=== PATIENT | female | born 1955 | race Caucasian/White ===

== ENCOUNTER 2019-02-01 02:02 | Outpatient (CLI) | payer OTHER, SELFPAY ==
[2019-02-01 08:48] LABS: Calculated LDL 138; Cholesterol 223 mg/dL (50-200); HDL Cholesterol 78 mg/dL (40-60); TSH 1.36 uIU/mL (0.358-3.74); Triglyceride 39 mg/dL (30-150)
== END 2019-02-01 02:22 ==
PROVIDERS: PCP Family Medicine; Visit Provider Family Medicine
DX: Z13.220 Encounter for screening for lipoid disorders (principal); Z13.29 Encounter for screening for other suspected endocrine disorder
CPT/HCPCS: 36415; 80061; 83721; 84443

== ENCOUNTER 2019-03-02 11:41 | Outpatient (CLI) | payer OTHER, SELFPAY ==
--- NOTE | 2019-03-02 12:30 | MERGE_ITS ---
*[facility]* *[facility]* [address] [place] [address] Date of study: 03/02/2019 Transthoracic Echocardiography M-mode, complete 2D, complete spectral Doppler, and color Doppler *STUDY CONCLUSIONS* Impressions: No significant valvular abnormality. Summary: 1. Left ventricle: The cavity size was normal. Wall thickness was normal. Systolic function was normal. The estimated ejection fraction was 55-60%. Wall motion was normal; there were no regional wall motion abnormalities. 2. Right ventricle: The cavity size was normal. Wall thickness was normal. Systolic function was normal. 3. Pulmonary arteries: Pulmonary systolic pressure was within the normal range. *PATIENT PRESENTATION* Height: 154.9cm (61in ) S/D Pressure: 97 / 46 Weight: 48.1kg (105.8lb ) BSA: 1.44m^2 Test start time: 12:40 PM. Test stop time: 01:30 PM. PERFORMING Unknown ORDERING Gilda Villagomez REFERRING Gilda Villagomez PERFORMING [facility] SURGICAL ONCOLOGIST RT Sangeetha Servin)(SUMIT)JUAN *PROCEDURE DATA* Procedure information: This study was interpreted by [facility]. Pertinent images and digital data are archived for permanent storage and are available for subsequent review. No prior study was available for comparison. Study status: Routine. Transthoracic echocardiography. M-mode, complete 2D, complete spectral Doppler, and color Doppler. A Transthoracic Echocardiogram was performed. Scanning was performed from the parasternal, apical, subcostal, and suprasternal notch acoustic windows. Images were obtained using an [id number] cardiac ultrasound machine. Image quality was adequate. Study completion: The patient tolerated the procedure well. History: PMH: Heart murmur r r01.1. *CARDIAC ANATOMY* Left ventricle: The cavity size was normal. Wall thickness was normal. Systolic function was normal. The estimated ejection fraction was 55-60%. Wall motion was normal; there were no regional wall motion abnormalities. Aortic valve: Trileaflet; mildly thickened leaflets. Mobility was not restricted. Doppler: Transvalvular velocity was within the normal range. There was no stenosis. There was no significant regurgitation. VTI ratio of LVOT to aortic valve: 0.85. Valve area (VTI): 2.5cm^2. Indexed valve area (VTI): 1.7cm^2/m^2. Peak velocity ratio of LVOT to aortic valve: 0.81. Valve area (Vmax): 2.4cm^2. Indexed valve area (Vmax): 1.7cm^2/m^2. Mean velocity ratio of LVOT to aortic valve: 0.85. Valve area (Vmean): 2.5cm^2. Indexed valve area (Vmean): 1.8cm^2/m^2. Mean gradient (S): 5mm Hg. Peak gradient (S): 9.4mm Hg. Aorta: Aortic root: The aortic root was normal in size. Ascending aorta: The ascending aorta was normal in size. Aortic arch: The aortic arch was normal in size. Mitral valve: Mildly thickened leaflets. Mobility was not restricted. Doppler: Transvalvular velocity was within the normal range. There was no evidence for stenosis. There was trivial regurgitation. Valve area by pressure half-time: 4.2cm^2. Indexed valve area by pressure half-time: 2.9cm^2/m^2. Peak gradient (D): 2.6mm Hg. Left atrium: The atrium was normal in size. Right ventricle: The cavity size was normal. Wall thickness was normal. Systolic function was normal. Pulmonic valve: Poorly visualized. Doppler: Transvalvular velocity was within the normal range. There was no evidence for stenosis. There was trivial regurgitation. Peak gradient (S): 4.5mm Hg. Tricuspid valve: Structurally normal valve. Doppler: Transvalvular velocity was within the normal range. There was no evidence for stenosis. There was trivial regurgitation. Pulmonary artery: Poorly visualized. Pulmonary systolic pressure was within the normal range. Right atrium: The atrium was normal in size. Pericardium: There was no pericardial effusion. Systemic veins: Inferior vena cava: Well visualized. The vessel was patent and normal in size. The respirophasic diameter changes were in the normal range (greater than or equal to 50%), consistent with normal central venous pressure. Baseline ECG: Bradycardia. Measurements Left ventricle Value Reference LV ID, ED, PLAX 4.1 cm 3.5 - 6.0 LV ID, ES, PLAX 3.2 cm 2.1 - 4.0 LV PW thickness, ED, PLAX 0.8 cm LV end-diastolic volume, 1-p A2C 89 ml LV ejection fraction, 1-p A2C 63 % LV end-diastolic volume, 1-p A4C 79 ml LV ejection fraction, 1-p A4C 63 % LV e', lateral 0.147 m/sec LV E/e', lateral 6 LV e', medial 0.135 m/sec LV E/e', medial 6 LV e', average 0.141 m/sec LV E/e', average 6 Ventricular septum Value Reference IVS thickness, ED, PLAX 0.9 cm LVOT Value Reference LVOT ID, A-P 1.9 cm LVOT area 3 cm^2 LVOT peak velocity, S 1.24 m/sec LVOT mean velocity, S 0.91 m/sec LVOT VTI, S 27.1 cm LVOT peak gradient, S 6.2 mm Hg LVOT mean gradient, S 3.6 mm Hg Stroke volume (SV), LVOT DP 81 ml Stroke index (SV/bsa), LVOT DP 56 ml/m^2 Aortic valve Value Reference Aortic valve peak velocity, S 1.5 m/sec Aortic valve mean velocity, S 1.1 m/sec Aortic valve VTI, S 32.0 cm Aortic mean gradient, S 5 mm Hg Aortic peak gradient, S 9.4 mm Hg VTI ratio, LVOT/AV 0.85 Aortic valve area, VTI 2.5 cm^2 Velocity ratio, peak, LVOT/AV 0.81 Aortic valve area, peak velocity 2.4 cm^2 Velocity ratio, mean, LVOT/AV 0.85 Aortic valve area, mean velocity 2.5 cm^2 Aortic valve area/bsa, mean velocity 1.8 cm^2/m^2 Aorta Value Reference Aortic root ID, ED 2.4 cm Ascending aorta ID, A-P, S 2.7 cm RVOT Value Reference RVOT VTI, S 18.6 cm Left atrium Value Reference LA ID, A-P, ES 2.0 cm LA ID/bsa, A-P 1.4 cm/m^2 <=2.2 LA volume/bsa, ES, 1-p A4C 31 ml/m^2 LA volume, ES, 2-p 32 ml LA volume/bsa, ES, 2-p 22 ml/m^2 LA/aortic root ratio 0.83 Mitral valve Value Reference Mitral E-wave peak velocity 0.81 m/sec Mitral A-wave peak velocity 0.58 m/sec Mitral deceleration time 180 ms 150 - 230 Mitral pressure half-time 52 ms Mitral peak gradient, D 2.6 mm Hg Mitral E/A ratio, peak 1.41 Mitral valve area, PHT, DP 4.2 cm^2 Pulmonary veins Value Reference Pulmonary vein peak velocity, S 0.38 m/sec Pulmonary vein peak velocity, D 0.72 m/sec Pulmonary vein velocity ratio, peak, 0.52 S/D Pulmonary vein A-wave reversal peak 0.27 m/sec velocity Pulmonary arteries Value Reference PA pressure, S, DP 21 mm Hg <=30 Tricuspid valve Value Reference Tricuspid regurg peak velocity 2 m/sec Tricuspid peak RV-RA gradient 15.7 mm Hg Right atrium Value Reference RA area, ES, A4C (L) 8.2 cm^2 8.3 - 19.5 Systemic veins Value Reference Estimated CVP 10 mm Hg Right ventricle Value Reference RV pressure, S, DP 26 mm Hg <=30 Pulmonic valve Value Reference Pulmonic peak gradient, S 4.5 mm Hg Legend: (L) and (H) luz values outside specified reference range. I have personally reviewed the images and have reviewed and edited the reported findings. Electronically signed by Vinny Soliman 03/02/2019 17:05
== END 2019-03-02 12:01 ==
PROVIDERS: PCP Family Medicine; Visit Provider Family Medicine
DX: R01.1 Cardiac murmur, unspecified (principal)
CPT/HCPCS: 93306

== ENCOUNTER 2020-02-12 00:20 | Outpatient (CLI) | payer OTHER, SELFPAY ==
--- NOTE | 2020-02-12 12:40 | DI.DEXA_ITS ---
EXAM: XR DEXA BONE DENSITY W/WO CELIA TECHNIQUE: Infinity Box C densitometer. COMPARISON: No exams were available for comparison FINDINGS: Lateral Spine Image: Unremarkable. No compression deformities identified. Left Hip: Total T-Score:-2.1. Femoral neck T-score -3.0. Total Z-Score: -1.0 T- and Z-scores: Consistent with osteoporosis. Lumbar Spine: Total T-Score: -1.6 Total Z-Score: 0.0 T- and Z-scores: Consistent with osteopenia.. Left forearm: T-score of the distal 3rd: -1.7. Total T-score -1.9. Total T-score -0.5. IMPRESSION: Osteoporosis of the left hip. Osteopenia of the lumbar spine and left forearm..
== END 2020-02-12 00:40 ==
PROVIDERS: PCP Family Medicine; Visit Provider Family Medicine
DX: M81.0 Age-related osteoporosis without current pathological fracture (principal); M85.88 Other specified disorders of bone density and structure, other site
CPT/HCPCS: 77080

== ENCOUNTER 2022-01-15 06:06 | Day surgery (SDC) | payer OTHER, SELFPAY ==
--- NOTE | 2022-01-14 11:56 | W.COLOREPORT ---
Colonoscopy Report Date of procedure: 01/15/22 Pre-op diagnosis general: CRC screen Post-op diagnosis procedure note: other (normal ) Surgeon: Arina Darby Anesthesia Type: General:No Airway Estimated blood loss (mL): 0 Pathology: none sent Complications: None Disposition: same day Prep: Miralax/Dulcolax Retraction Time: 7 Procedure Description: After informed consent was obtained the patient was taken to the procedure room and placed in a left decubitous position. Monitors were applied and a time out was done. The patients name, date of , procedure, allergies to medications and metal in their body was reviewed. The patient was then sedated. Once sedated and comfortable a rectal exam was done. External exam was normal. Internal exam revealed a normal sphincter tone and no palpable masses. The scope was then introduced and retrofelexed. No internal hemorrhoids were identified. The scope was then advanced to the cecum without difficulty. She does have a somewhat tortuous colon. The TI and appendiceal orifice were identified. The prep was the BPS 3 in all segments for a total of 9. The scope was then slowly retracted over 7 minutes back into the rectum. There are no polyps, AVMs, diverticula visualized today. The mucosa is pink and healthy with a normal vascular pattern. The scope was removed and the patient was woken up and taken back to Same day surgery in stable condition. The patient tolerated the procedure well and there were no immediate complications. Follow up: The patient should follow up in 10 years unless they develop changes in bowel habits or other new gastrointestinal complaints.
--- NOTE | 2022-01-14 11:57 | PDOC.DSDIS_ITS ---
Discharge Plan Disposition Patient Disposition: HOME Condition: Good Discharge Details Reason For Visit: colon scope Attending Provider: Arina Darby Primary Care Provider: Lenny Chau Home Meds and New Rx's Prescriptions: Continued mupirocin 2 % ointment 1 applic TP BID PRN (Reason: dermatitis) Qty: 30 2RF oxybutynin chloride [Ditropan XL] 10 MG tablet extended release 24hr 10 mg PO DAILY PRN Label Comments: Pt states she only takes for trips.HE ibuprofen 600 MG tablet 600 mg PO BID PRNQty: 60 alendronate 70 mg tablet 70 mg PO QWEEK Qty: 12 4RF Rx Instructions: take with large glass of water,on empty stomach,stay upright for 30min cholecalciferol (vitamin D3) 50 mcg (2,000 unit) capsule 50 mcg PO DAILY valacyclovir 1 gram tablet 2,000 mg PO BID PRN Rx Instructions: take 2 tablets at first signs of infection and repeat about 12 hours later x1 Discontinued polyethylene glycol 3350 17 gram/dose powder 238 g PO ONCE Qty: 238 0RF Rx Instructions: take per colonoscopy instructions bisacodyl [Dulcolax (bisacodyl)] 5 mg tablet,delayed release (DR/EC) 5 mg PO ONCE Qty: 4 0RF Rx Instructions: take per colonoscopy instructions Discharge Instructions Additional Instructions: DSU Colonoscopy Post- Op Instructions Instructions for Everyone who is given Anesthesia: For your safety, please do the following for the next twenty-four (24) hours: *Do Not operate a motor vehicle (car, truck, motorcycle, etc.) *Do Not drink alcoholic beverages or use any recreational drugs for the first 24 hours or while taking pain medications. The medications in your body may have a reaction that can be dangerous. *Do Not make any important decisions or sign any important papers. Findings: normal Follow up: repeat in 10 yrs time 1. No lifting over 20 pounds or strenuous activity for the first 24 hours after your procedure. After 24 hours there are no restrictions on your activity but you may feel fatigued for a few days. 2. After you arrive home you may have a light meal and return to your normal diet as you can tolerate it without feeling sick to your stomach. 3. You may have a bloated, gaseous feeling in your belly (abdomen) after a colonoscopy. Passing gas and belching will help. Walking or lying down on your left side with your knees flexed may relieve the discomfort. Call the office at [phone] (Office) or [phone] (Hospital) right away if you notice any of the following: a.Vomiting of blood or ?coffee ground stools?. b.Rectal bleeding 1Tbsp, blood clots or continuous bleeding. c.Severe belly (abdominal) pain. d.A hard distended belly (abdomen) and an inability to pass gas. 4. Please don?t expect to have a normal BM (bowel movement) for 2-3 days after your procedure. 5. If there are questions regarding the findings of your procedure, please contact your doctor 6. If you are unable to contact your doctor with a problem, contact the hospital at [phone]. 7. Continue all your regular medications unless directed otherwise. I understand the above instructions and have no questions. Signature of Patient or Adult Escort Name of Responsible Adult Escort Signature of Nurse Date/Time Activity:: see above Diet:: see above Discharge Orders Discharge Orders: Discharge Order (Routine); Ordered 01/14/22 Ordered By: Arina Darby
[2022-01-15 06:23] VITALS: BP 110/74; PULSE 58; RESP 18; TEMP 36.6; O2SAT 98
[2022-01-15] MEDS: Lactated Ringers 1,000 ML 80 ML IV (06:52)
--- NOTE | 2022-01-15 07:03 | W.ANESPRE ---
General Info Date of Service Date Performed: 01/15/22 Height: 5 ft Weight: 47.4 kg Body Mass Index (BMI): 20.4 Surgical Procedure: Operation Date: 01/15/22 07:35 Proposed Procedure Side Surgeon ailyn Darby, Meds Allergies and Home Medications Allergies Allergy/AdvReac Type Severity Reaction Status Date / Time codeine AdvReac Severe Other (See Unverified 01/15/22 06:30 Comment) homatropine AdvReac Severe GI UPSET Unverified 01/15/22 06:30 hydrocodone AdvReac Severe STOMACH Unverified 01/15/22 06:30 UPSET Home Medication Medication Instructions Recorded ibuprofen 600 mg tablet 600 mg PO BID PRN #60 tab-caps 01/25/18 oxybutynin chloride 10 mg 10 mg PO DAILY PRN 01/25/18 tablet,extended release 24 hr (Ditropan XL) mupirocin 2 % topical ointment 1 applic topical BID PRN 02/11/20 dermatitis #30 grams alendronate 70 mg tablet 70 mg PO QWEEK #12 tabs 06/10/20 cholecalciferol (vitamin D3) 50 50 mcg PO DAILY 06/29/21 mcg (2,000 unit) capsule valacyclovir 1 gram tablet 2,000 mg PO BID PRN 01/13/22 Current Visit Medications: Current Medications Generic Name Dose Route Start Last Admin Trade Name Freq PRN Reason Stop Dose Admin Hyoscyamine Sulfate 0.125 mg 01/14/22 11:55 Hyoscyamine 0.125 Mg Sl/Oral/Chew SL DIRECTED PRN Ringer's Solution 1,000 mls @ 80 mls/hr 01/15/22 06:00 01/15/22 06:52 IV 02/13/22 23:59 80 mls/hr INFUSION BARRETT Administration IV Miscellaneous Supplies 1 each 01/15/22 06:00 Iv Access IV 02/13/22 23:59 DIRECTED BARRETT Ondansetron HCl 4 mg 01/14/22 11:55 Ondansetron 4 Mg/2 Ml Vial IVP Q4H PRN PRN Nausea / Vomiting Sodium Chloride 0 ml 01/15/22 06:00 Normal Saline Flush 10 Ml Syr IV 02/13/22 23:59 PRN PRN Sodium Chloride 0 ml 01/15/22 06:00 Normal Saline 10 Ml Vial IJ 02/13/22 23:59 DIRECTED PRN Sterile Water 0 ml 01/15/22 06:00 Water,Injection,Sterile 10 Ml Vial IJ 02/13/22 23:59 DIRECTED PRN PFSH Active Problems Active Problems: Problem Status Onset Code Pityriasis versicolor B36.0 History of bilateral ligation of fallopian tubes Z98.51 Dysphagia R13.10 Heart murmur R01.1 Atrophic vaginitis 06/07/14 N95.2 Medical History Medical History H/O cold sores Osteoporosis Overactive bladder Surgical History Surgical History History of colonoscopy (~2010) Ligation of fallopian tube B/L Tobacco Smoking/Tobacco Use Status: Never Passive smoking exposure: Yes Alcohol Alcohol Intake: current Alcohol intake frequency: a few times a month Alcohol type: wine and hard liquor Substance Use Substance use: Never Substance use type: does not use Vital Signs and Lab Results Vital Signs Most Recent Vital Signs in EMR: Most Recent Vital Signs Temp Pulse Resp BP Pulse Ox 36.6 C 58 L 18 110/74 98 01/15/22 06:23 01/15/22 06:23 01/15/22 06:23 01/15/22 06:23 01/15/22 06:23 Lab Results Blood Type / Crossmatch: No Data to Display Complete Blood Count: No Data to Display Complete Metabolic Panel: No Data to Display Liver Function Panel: No Data to Display Coagulation Panel: No Data to Display Cardiac Panel: No Data to Display Arterial Blood Gas: No Data to Display Venous Blood Gas: No Data to Display Pancreas Panel: No Data to Display Thyroid Panel: No Data to Display Infectious Disease: No Data to Display Blood Cultures: No Data to Display Toxicology Panel: No Data to Display Anesthesia Assessment and Plan Anesthesia History Personal History: PONV and Delayed Emergence Family History: No Family History of Anesthesia Complications Exercise Tolerance Exercise Tolerance: Metabolic Equivalents>4 Cardiac & Pulmonary Exam Cardiac Exam: Normal S1/S2 Heart Sounds Pulmonary Exam: Clear Bilateral Breath Sounds Implantable Cardiac Device Does patient have a Pacemaker or an ICD?: No Airway Exam Known Difficult Airway: No Mallampati Class: 2 Mouth Opening: Normal (> 3cm) Thyromental Distance: Greater than 3 cm Neck Range of Motion: Full ROM Neck Circumference: Normal Teeth Condition: Normal Dentition ASA Classification ASA Score: ASA 2 Emergency Case?: No NPO Status NPO Status: NPO Clears >2 hours, Solids >8 hours Anesthesia Plan Resuscitation Status: Full Code Anesthesia Technique: General Anesthesia Airway Planned: Natural Airway Monitors Used: Standard Monitors
[2022-01-15 07:05] VITALS: BMI 20.4
[2022-01-15 08:07] VITALS: BP 147/69; PULSE 71; RESP 17; TEMP 36.4; O2SAT 100
[2022-01-15] MEDS: Hyoscyamine 0.125 MG SL/ORAL/CHEW SL (08:12)
[2022-01-15 08:36] VITALS: BP 104/83; PULSE 64; RESP 17; TEMP 36.3; O2SAT 99
--- NOTE | 2022-01-15 08:43 | W.ANESPOSTOP ---
Postoperative Evaluation Date, Time and Location Date Performed: 01/15/22 Time Performed: 07:43 Patient Location: Day Surgery Unit Vital Signs Most Recent Imported Vital Signs: Most Recent Vital Signs Temp Pulse Resp BP Pulse Ox 36.4 C L 71 17 147/69 H 100 01/15/22 08:07 01/15/22 08:07 01/15/22 08:07 01/15/22 08:07 01/15/22 08:07 Pain Score Most Recent Pain Score: Most Recent Pain Score Pain Level 1 01/15/22 08:07 Assessment Mental Status: Awake (Alert & Oriented to Patient Baseline) Airway and Respiratory Function: Patent airway with normal (patient baseline) respiratory exam Cardiovascular Function: Hemodynamically Stable Hydration Status: Adequately Hydrated Nausea & Vomiting: No Nausea or Vomiting Pain: Pt. Denies Any Pain Peripheral Nerve Block: Patient did not receive a nerve block
== END 2022-01-15 09:08 | disposition home or self-care (01) ==
PROVIDERS: PCP Nurse Practitioner Family; Visit Provider Surgery
PROC: 0DJD8ZZ Inspection of Lower Intestinal Tract, Via Natural or Artificial Opening Endoscopic (ICD-10-PCS; CPT 45378; principal; 2022-01-15 07:30)
DX: Z12.11 Encounter for screening for malignant neoplasm of colon (principal); M81.0 Age-related osteoporosis without current pathological fracture; N32.81 Overactive bladder
CPT/HCPCS: 45378; J2405; J3490

== ENCOUNTER 2023-02-08 01:59 | Outpatient (CLI) | payer MEDICARE, SELFPAY ==
[2023-02-08 08:49] LABS: Anion Gap 5.8 mmol/L (3-11); BUN 14 mg/dL (7-18); CO2 29.2 mmol/L (21.0-32.0); CREATININE 0.7 mg/dL (0.55-1.02); Calcium 8.9 mg/dL (8.5-10.1); Calculated LDL 120 mg/dL (<100); Chloride 103 mmol/L (98-107); Cholesterol 207 mg/dL (<200); Estimated GFR 95.92 (mL/min/1.73m2); Glucose 86 mg/dL (74-106); HDL Cholesterol 82 mg/dL (40-60); Potassium 3.8 mmol/L (3.5-5.1); Sodium 138 mmol/L (136-145); Triglyceride 29 mg/dL (<150)
[2023-02-08 09:12] LABS: Vitamin D 25 Total 59.4 ng/mL (30-100)
== END 2023-02-08 02:00 | disposition home or self-care (01) ==
PROVIDERS: Visit Provider Family Medicine
DX: R01.1 Cardiac murmur, unspecified (principal); M81.0 Age-related osteoporosis without current pathological fracture; R79.89 Other specified abnormal findings of blood chemistry
CPT/HCPCS: 36415; 80048; 80061; 82306

== ENCOUNTER 2025-01-18 00:48 | Outpatient (CLI) | payer MEDICARE, OTHER, SELFPAY ==
--- NOTE | 2025-01-18 | DI.DEXA_ITS ---
Exam(s) XR DEXA BONE DENSITY W/WO CELIA EXAM: XR DEXA BONE DENSITY W/WO CELIA CLINICAL HISTORY: Age-related osteoporosis wo current pathological fx, M81.0 TECHNIQUE: Holo[employer]renta Horizon C densitometer analysis of left hip, lumbar spine and left forearm. Lat eral survey image of the thoracic and lumbar spine. COMPARISON: CR XR DEXA BONE DENSITY W/WO CELIA from 02/12/2020 FINDINGS: Lateral view of the thoracic and lumbar spine shows no evidence of compression fractures. Bone mineral density measurements of the lumbar spine correspond to a total T-score of -1.1, in the mildly osteopenic range. This represents a 7.0 percent increase from 2020. Bone mineral density measurements of the left hip correspond to a total T-score of -1.9. This repre sents a 4.3 percent increase from 2020. The femoral neck T-score is -2.4, in the osteopenic range. Theleft forearm bone mineral density measurements correspond to a T-score of the distal 3rd of -2.1, in the osteopenic range. This represents a 3.3 percent decrease from 2020. IMPRESSION: Osteopenia of the spine, hip and forearm.
== END 2025-01-18 01:08 ==
PROVIDERS: PCP Family Medicine; Visit Provider Family Medicine
DX: M81.0 Age-related osteoporosis without current pathological fracture (principal)
CPT/HCPCS: 77080

== ENCOUNTER 2025-03-26 12:48 | Outpatient (REF) | payer MEDICARE, OTHER, SELFPAY ==
[2025-03-26 16:36] LABS: Anion Gap 8.3 mmol/L (3-11); BUN 10 mg/dL (7-18); CO2 28.7 mmol/L (21.0-32.0); Calcium 9.3 mg/dL (8.5-10.1); Calculated LDL 137 mg/dL (<100); Chloride 103 mmol/L (98-107); Cholesterol 235 mg/dL (<200); Estimated GFR 98.32 (mL/min/1.73m2); Glucose 84 mg/dL (74-106); HDL Cholesterol 91 mg/dL (>or=50); Potassium 4.6 mmol/L (3.5-5.1); Sodium 140 mmol/L (136-145); Triglyceride 38 mg/dL (<150); Vitamin D 25 Total 63 ng/mL (30-100)
== END 2025-03-26 12:49 | disposition home or self-care (01) ==
LOC: NCHCN 12:48
PROVIDERS: PCP Family Medicine; Visit Provider Family Medicine
DX: M81.0 Age-related osteoporosis without current pathological fracture (principal)
CPT/HCPCS: 80048; 80061; 82306

== ENCOUNTER 2025-04-05 01:23 | Outpatient (CLI) | payer MEDICARE, OTHER, SELFPAY ==
[2025-04-05] MEDS: Methacholine 100 MG VIAL IH (14:55)
[2025-04-05] MEDS: Albuterol HFA 18 GM 200 PUFF INH IH (14:55)
[2025-04-05] MEDS: Inhaler, Assist Device 1 EACH MC (14:55)
--- NOTE | 2025-04-08 14:34 | W.PFT ---
Date of service: 04/05/25 Time of Service: 12:53 Pulmonary Function Test Result Indications: Chronic cough Impression 1. Good patient effort was noted. ATS standards for reproducibility were met. 2. Spirometry showed mild obstructive lung disease with an FEV1 of 80% (1.35 L) 3. At 1.0 mg/mL of methacholine, there was a 25% fall in FEV1 Conclusion: - mild obstructive lung disease - positive methacholine challenge test
== END 2025-04-05 01:24 | disposition home or self-care (01) ==
LOC: RT 01:23
PROVIDERS: PCP Family Medicine; Visit Provider Family Medicine
DX: R05.3 Chronic cough (principal)
CPT/HCPCS: 94070; 94726; 94729; 95070; J7674